=== PATIENT | male | born 1985 | race Two or more races ===

== ENCOUNTER 2018-04-21 21:43 | Emergency (ER) | payer SELFPAY ==
[2018-04-21 22:20] LABS: BILIRUBIN,URINE NEGATIVE (NEG); CLARITY,URINE CLEAR; COLOR,URINE YELLOW; GLUCOSE,URINE NEGATIVE (NEG); NITRITE,URINE NEGATIVE (NEG); PROTEIN,URINE NEGATIVE (NEG-TRACE)
[2018-04-21 22:25] LABS: ADD MAN DIFF? NO
[2018-04-21] MEDS: ONDANSETRON PF 4 MG/2 ML VIAL. IV (22:25)
[2018-04-21 22:26] LABS: BACTERIA,URINE 0 /HPF (0-FEW); BARBITURATES NEG (NEG); BASO # 0.1 x10^3/uL (0.0-0.2); BASO % 1 % (0-3); BENZODIAZEPINES NEG (NEG); CANNABINOIDS NEG (NEG); COCAINE NEG (NEG); EOS # 0.4 x10^3/uL (0.0-0.7); EOS % 4 % (0-3); HEMATOCRIT 44.6 % (39.0-53.0); HEMOGLOBIN 15.7 g/dL (13.0-17.5); LYMPH # 4.1 x10^3/uL (1.0-4.8); LYMPH % 41 % (24-48); MEAN CORPUSCULAR HEMOGLOBIN 30 pg (25-35); MEAN CORPUSCULAR HGB CONC 35 g/dL (31-37); MEAN CORPUSCULAR VOLUME 85 fL (79-100); METHADONE NEG (NEG); MONO # 0.7 x10^3/uL (0.0-1.1); MONO % 7 % (0-9); NEUT # 4.6 x10^3uL (1.8-7.7); NEUT % 46 % (31-73); OPIATES NEG (NEG); PHENCYCLIDINE NEG (NEG); PLATELET COUNT 223 x10^3/uL (140-400); RBC,URINE 0 /HPF (0-2); RED BLOOD COUNT 5.24 x10^6/uL (4.30-5.70); RED CELL DISTRIBUTION WIDTH 13.6 % (11.5-14.5); WBC,URINE 0 /HPF (0-4); WHITE BLOOD COUNT 9.9 x10^3/uL (4.0-11.0)
[2018-04-21 22:27] LABS: AMPHETAMINE/METHAMPHETAMINE NEG (NEG); ETHANOL, URINE NEG (NEG)
[2018-04-21 22:35] LABS: ANION GAP 8 (6-14); BLOOD UREA NITROGEN 8 mg/dL (8-26); BUN/CREATININE RATIO 11 (6-20); CALCIUM 9.3 mg/dL (8.5-10.1); CARBON DIOXIDE 29 mmol/L (21-32); CHLORIDE 101 mmol/L (98-107); CREATININE 0.7 mg/dL (0.7-1.3); GFR 129.9; GLUCOSE 121 mg/dL (70-99); POTASSIUM 3.9 mmol/L (3.5-5.1); SODIUM 138 mmol/L (136-145)
[2018-04-21 22:41] LABS: ALBUMIN 3.9 g/dL (3.4-5.0); ALBUMIN/GLOBULIN RATIO 1.1 (1.0-1.7); ALK PHOS 62 U/L (46-116); ALT (SGPT) 127 U/L (16-63); AST (SGOT) 53 U/L (15-37); CREATINE KINASE 179 U/L (39-308); LIPASE 117 U/L (73-393); TOTAL BILIRUBIN 0.3 mg/dL (0.2-1.0); TOTAL PROTEIN 7.3 g/dL (6.4-8.2)
[2018-04-21 22:44] LABS: TROPONINI < 0.017 ng/mL (0.000-0.055)
[2018-04-21] MEDS ORDERED: CONTRAST GIVEN. MC (22:45)
[2018-04-21] MEDS: IOHEXOL 300 MG/ML 100ML VIAL. IV (23:00)
[2018-04-22] MEDS ORDERED: LIDO:MAALOX 1:1 20 ML SINGLE DOSE. SWSW (02:00)
== END 2018-04-22 01:49 | disposition home or self-care (01) ==
LOC: ER 04-22 01:49
DX: R10.13 Epigastric pain (principal); R74.0 Nonspecific elevation of levels of transaminase and lactic acid dehydrogenase [LDH]; R11.2 Nausea with vomiting, unspecified
CPT/HCPCS: 36415; 71046; 74177; 76705; 80053; 80307; 81001; 82550; 83690; 84484; 85025; 93005; 96374; 99285-25; J2405; Q9967